=== PATIENT | male | born 1965 | race Caucasian/White ===

== ENCOUNTER 2022-11-02 18:04 | Observation (INO) ==
[2022-11-02 21:02] LABS: ABS Basophils 0.1 10^3/uL (0.0-0.1); ABS Eosinophils 0.1 10^3/uL (0.0-0.5); ABS Lymphocytes 1.7 10^3/uL (1.0-4.8); ABS Monocytes 0.5 10^3/uL (0.0-1.1); ABS Neutrophils 4.2 10^3/uL (1.5-7.6); ABS Nucleated RBC 0.01 10^3/ul; Eosinophil % 1.8 %; Hematocrit 42.6 % (38-53); Hemoglobin 14.5 g/dL (13.2-16.3); Lymphocyte % 25.3 %; Mean Corpuscular Hemoglobin 31.5 pg (27-33); Mean Corpuscular Hgb Conc 34.2 g/dL (31-36); Mean Corpuscular Volume 92.3 fL (80-97); Mean Platelet Volume 8.6 fL (7.5-11.2); Nucleated Red Blood Cells % 0.2 /100 WBC (0.0-0.4); Platelet Count 243 10^3/uL (150-450); Red Blood Count 4.61 10^6/uL (4.06-5.63); Red Cell Distribution Width 13.2 % (12-17); White Blood Count 6.5 10^3/uL (3.6-10.2)
[2022-11-02 21:05] LABS: INR 0.97 (0.83-1.13)
[2022-11-02 21:24] LABS: High Sens Troponin Baseline 5 pg/mL (<20)
[2022-11-02 21:43] LABS: ALT 21 U/L (7-52); AST 20 U/L (13-39); Albumin 4.5 g/dL (3.2-5.2); Albumin/Globulin Ratio 1.9 (1-3); Alkaline Phosphatase 47 U/L (35-149); Anion Gap 9 mmol/L (2-16); Blood Urea Nitrogen 13 mg/dL (6-24); CO2 Carbon Dioxide 27 mmol/L (22-32); Calcium 9.8 mg/dL (8.6-10.3); Chloride 104 mmol/L (101-111); Creatinine, Serum 1.02 mg/dL (0.67-1.17); Globulin 2.4 g/dL (2-4); Glucose 90 mg/dL (70-100); Potassium 4.3 mmol/L (3.5-5.0); Sodium 140 mmol/L (135-145); Total Protein 6.9 g/dL (6.4-8.9); eGFR CKD-EPI 86.3 (>60)
[2022-11-02] MEDS ORDERED: Iohexol 350 (CONTRAST) 500 ML MDV IV ONE (22:02)
[2022-11-02 22:14] LABS: High Sensitivity Troponin 1 Hr 6 pg/mL (<20)
[2022-11-02 23:05] LABS: HDL Cholesterol 73.2 mg/dL
[2022-11-03 00:17] LABS: C Reactive Protein < 1.00 mg/L (<8.01)
[2022-11-03 01:14] LABS: Erythrocyte Sed Rate 1 mm/Hr (0-19)
[2022-11-03] MEDS ORDERED: Enoxaparin 40 MG/0.4 ML SYR SUBCUT SCH (02:00)
[2022-11-03 02:49] LABS: TSH Ultra Thyroid Stim Horm 4.12 mcIU/mL (0.34-5.60)
[2022-11-03 05:53] LABS: Urine Appearance Clear; Urine Bilirubin Negative (Negative); Urine Blood Negative (Negative); Urine Color Yellow; Urine Glucose Negative (Negative); Urine Ketones Negative (Negative); Urine Nitrite Negative (Negative); Urine Protein Negative (Negative); Urine Specific Gravity 1.016 (1.002-1.030); Urine Urobilinogen Negative (Negative)
[2022-11-03] MEDS ORDERED: Aspirin EC 81 mg TAB.EC (enteric coated) PO SCH (09:00)
[2022-11-03 15:47] VITALS: BP 121/85
== END 2022-11-04 16:00 | disposition home or self-care (01) ==
LOC: EDHOLD 18:04 → ED 18:04 → SUATTDRO 23:58 → EDHOLD 11-03 15:45
PROVIDERS: ADMIT Hospitalist; ATTEND Hospitalist